=== PATIENT | male | born 1995 | race Two or more races ===

== ENCOUNTER 2021-04-01 14:15 | Emergency (ER) | payer OTHER ==
[2021-04-01 14:24] VITALS: BP 120/73; PULSE 84; TEMP 97.4; BMI 20.7
[2021-04-01] MEDS ORDERED: IBUPROFEN 600 MG TABLET (FP) PO ONE ×2 (14:45→14:50)
== END 2021-04-01 15:20 | disposition home or self-care (01) ==
LOC: FER 14:15
DX: M54.5 Low back pain (principal)
CPT/HCPCS: 99283-25